=== PATIENT | male | born 1965 | race Caucasian/White ===

== ENCOUNTER 2016-11-26 09:56 | Day surgery (SDC) | payer BC ==
[~2016-11-26 09:56] MED LIST: PROPOFOL 500 MG/50 ML EMU IV ONE
[2016-11-26 12:30] VITALS: BP 114/73; PULSE 62; RESP 20; TEMP 97; O2SAT 99
== END 2016-11-26 12:45 | disposition home or self-care (01) ==
LOC: SURG 09:56
PROVIDERS: ATTEND Surgery
DX: Z12.11 Encounter for screening for malignant neoplasm of colon (principal)
CPT/HCPCS: 45378; J2704